=== PATIENT | female | born 2000 | race Caucasian/White ===

== ENCOUNTER 2022-01-28 18:01 | Emergency (ER) | payer BC ==
[~2022-01-28] VITALS: Ht 167.6 cm; Wt 63.5 kg
--- NOTE | 2022-01-28 19:04 | NUR ---
Pt left w/o being seen by .
--- NOTE | 2022-01-28 19:13 | NUR ---
Correction: Pt was seen by MD but left prior to treatments/orders.
== END 2022-01-28 19:12 | disposition left against medical advice (07) ==
LOC: ER 18:06
DX: Z34.01 Encounter for supervision of normal first pregnancy, first trimester (principal); Z3A.00 Weeks of gestation of pregnancy not specified
CPT/HCPCS: A4663